=== PATIENT | male | born 1950 | race Caucasian/White ===

== ENCOUNTER 2022-07-18 09:09 | Emergency (ER) | payer OTHER ==
[~2022-07-18] VITALS: Ht 188 cm; Wt 94.5 kg
[2022-07-18] MEDS ORDERED: TRAM-297 PO (10:14)
[2022-07-18 10:15] VITALS: BP 112/61
== END 2022-07-18 10:24 | disposition home or self-care (01) ==
LOC: ER 09:09
DX: M23.92 Unspecified internal derangement of left knee (principal); E78.5 Hyperlipidemia, unspecified; I10 Essential (primary) hypertension; Z86.73 Personal history of transient ischemic attack (TIA), and cerebral infarction without residual deficits
CPT/HCPCS: 73562